=== PATIENT | female | born 1970 | race Hispanic/Latino ===

== ENCOUNTER 2022-02-03 17:52 | Observation (INO) | payer OTHER ==
[~2022-02-03] VITALS: Ht 154.9 cm; Wt 84.0 kg
[2022-02-03] VITALS (16 sets, daily range): BP systolic 123–158; BP diastolic 72–100
--- NOTE | 2022-02-03 18:47 | NUR ---
PATIENT AMBULATORY TO ROOM IN NAD. PROVIDER NOTIFIED OF PATIENT STATUS.
[2022-02-03 19:42] LABS: HEMATOCRIT 42.3 % (37.0-47.0); HEMOGLOBIN 14.5 g/dl (12.0-16.0); IMMATURE GRANULOCYTES 0.1 % (0.0-5.0); MEAN CELL VOLUME 89.8 fL CALC (80.0-100.0); MEAN CORPUSCULAR HGB 30.8 pG CALC (26.0-32.0); MEAN CORPUSCULAR HGB CONC 34.3 g/dL CAL (32.0-36.0); NEUT# 6.74 thou/uL (2.00-7.15); RED BLOOD COUNT 4.71 mill/uL (4.20-5.60); RED CELL DISTRI WIDTH 11.6 % (11.5-15.5)
[2022-02-03 20:06] LABS: ALBUMIN 4.4 g/dL (3.2-5.0); ALKALINE PHOSPHATASE 95 u/l (38-126); ANION GAP 14 (6-22 (CALC)); BILIRUBIN, TOTAL 0.3 mg/dL (0.0-1.4); BUN 12 mg/dL (7-17); BUN/CREATININE RATIO 15 (12-20 (CALC)); CARBON DIOXIDE 28 mmol/l (22-30); CHLORIDE 101 mmol/l (95-108); CREATININE 0.8 mg/dL (0.5-1.0); GFR FOR AFR.AMER. > 60 ML/MIN (>=60 (CALC)); GFR OTHER RACES > 60 ML/MIN (>=60 (CALC)); POTASSIUM 4.2 mmol/l (3.5-5.1); SGOT/AST 28 u/l (14-36); SODIUM 138 mmol/l (137-146); TOTAL PROTEIN 8.8 g/dL (6.3-8.2)
--- NOTE | 2022-02-03 22:40 | NUR ---
REPORT TO LARRY MURDOCK. PATIENT STABLE TO ROOM VIA STRETCHER WITH EVENT SPECIALIST FOOD DEMONSTRATOR AND NURSE FOR TRANSPORT
[2022-02-04 00:37] VITALS: BP 135/77
[2022-02-04 03:53] VITALS: BP 146/86
[2022-02-04 05:16] LABS: HEMATOCRIT 41.2 % (37.0-47.0); HEMOGLOBIN 14.1 g/dl (12.0-16.0); IMMATURE GRANULOCYTES 0.1 % (0.0-5.0); MEAN CELL VOLUME 90.4 fL CALC (80.0-100.0); MEAN CORPUSCULAR HGB 30.9 pG CALC (26.0-32.0); MEAN CORPUSCULAR HGB CONC 34.2 g/dL CAL (32.0-36.0); NEUT# 5.27 thou/uL (2.00-7.15); RED BLOOD COUNT 4.56 mill/uL (4.20-5.60); RED CELL DISTRI WIDTH 11.7 % (11.5-15.5)
[2022-02-04 06:08] LABS: ALBUMIN 4.1 g/dL (3.2-5.0); ALKALINE PHOSPHATASE 87 u/l (38-126); ANION GAP 16 (6-22 (CALC)); BILIRUBIN, TOTAL 0.3 mg/dL (0.0-1.4); BUN 12 mg/dL (7-17); BUN/CREATININE RATIO 18 (12-20 (CALC)); CARBON DIOXIDE 24 mmol/l (22-30); CHLORIDE 102 mmol/l (95-108); CREATININE 0.7 mg/dL (0.5-1.0); GFR FOR AFR.AMER. > 60 ML/MIN (>=60 (CALC)); GFR OTHER RACES > 60 ML/MIN (>=60 (CALC)); MAGNESIUM 2.1 mg/dL (1.6-2.3); POTASSIUM 4.2 mmol/l (3.5-5.1); SGOT/AST 23 u/l (14-36); SODIUM 138 mmol/l (137-146); TOTAL PROTEIN 7.7 g/dL (6.3-8.2)
[2022-02-04 06:22] VITALS: BP 137/82
--- NOTE | 2022-02-04 08:13 | NUR ---
pt sitting on the side of the bed eating breakfast. yi speaking. pt currently denies any active pain but does state she feels a "pressure" in her chest, denies any pain with deep inhalation. states her generalized body aches have improved and minimal cough, states she notices cough in the am, denies any sputum production. clear breath sounds upon auscultation. active bowel sounds x4 quadrants. media relations associate in place. IV healthy and patent. assessment completed. discussed poc. call light within reach.
--- NOTE | 2022-02-04 13:08 | NUR ---
Discharge instructions given. Patient verbalizes understanding of same. Discharged in stable condition via Wheelchair to Home accompanied by family & staff. All belongings sent with pt.
== END 2022-02-04 12:00 | disposition home or self-care (01) | DRG 313 ==
LOC: ED 17:52 → ED-I 20:15 → ED 20:38 → MS2 20:39
PROVIDERS: Nurse Practitioner; ADMIT Internal Medicine; ATTEND Internal Medicine
DX: R07.9 Chest pain, unspecified (principal); R05.9 Cough, unspecified; M79.10 Myalgia, unspecified site; E78.5 Hyperlipidemia, unspecified; Z82.49 Family history of ischemic heart disease and other diseases of the circulatory system; Z20.822 Contact with and (suspected) exposure to COVID-19